=== PATIENT | female | born 2005 | race Caucasian/White ===

== ENCOUNTER 2023-12-15 21:30 | Day surgery (SDC) | payer BC ==
[2023-12-15] MEDS ORDERED: hydrALAZINE 20 MG/ML VIAL SLOW IVP PRN (22:56)
== END 2023-12-16 00:20 | disposition home or self-care (01) ==
LOC: CSHLD/OP 21:30
PROVIDERS: ATTEND Obstetrics & Gynecology
DX: O47.1 False labor at or after 37 completed weeks of gestation (principal); O99.343 Other mental disorders complicating pregnancy, third trimester; F41.9 Anxiety disorder, unspecified; Z79.899 Other long term (current) drug therapy; Z90.49 Acquired absence of other specified parts of digestive tract; Z3A.39 39 weeks gestation of pregnancy
CPT/HCPCS: 99283

== ENCOUNTER 2023-12-20 10:36 | Inpatient (IN) | payer OTHER ==
[~2023-12-20 10:36] MED LIST: Bupivacaine 0.25% HCL 30 ML VIAL ONE; ePHEDrine Sulfate 50 MG/10 ML VIAL ONE
[2023-12-20] MEDS ORDERED: Methylergonovine 0.2 MG/ML VIAL IM PRN ×2 (10:45→21:41)
[2023-12-20] MEDS ORDERED: Diphenoxylate HCl/Atropine Tablet PO PRN ×2 (10:45)
[2023-12-20] MEDS ORDERED: Acetaminophen 500 MG TAB PO PRN (10:45)
[2023-12-20] MEDS ORDERED: Ondansetron PF 4 MG/2 ML Vial IVP PRN ×3 (10:45→19:31)
[2023-12-20] MEDS ORDERED: Promethazine HCl 25 MG/ML VIAL IM PRN ×2 (10:45→19:31)
[2023-12-20] MEDS ORDERED: HYDROcodone/Acetaminophen 5/325 mg Tablet PO PRN ×2 (10:45)
[2023-12-20] MEDS ORDERED: Lidocaine 1% (PF) 30 ML VIAL SC PRN (10:45)
[2023-12-20] MEDS ORDERED: Lactated Ringer's 1,000 ML IV SCH (10:45)
[2023-12-20] MEDS ORDERED: hydrALAZINE 20 MG/ML VIAL SLOW IVP PRN ×2 (10:45→21:41)
[2023-12-20] MEDS ORDERED: Misoprostol 200 MCG TAB PR PRN (10:45)
[2023-12-20] MEDS ORDERED: Oxytocin 30 units/NS 500 ML 500 ML IV SCH ×3 (10:45)
[2023-12-20] MEDS ORDERED: fentaNYL 50 mcg/mL 1 mL Vial SLOW IVP PRN ×2 (10:45→19:31)
[2023-12-20] MEDS ORDERED: Docusate 100 MG CAP PO PRN (10:45)
[2023-12-20] MEDS ORDERED: Ibuprofen 800 MG TAB PO PRN (10:45)
[2023-12-20] MEDS ORDERED: Carboprost 250 MCG/ML AMP IM PRN (10:45)
[2023-12-20 11:37] LABS: Hematocrit 36.4 % (34.9-44.5); Hemoglobin 13.1 g/dL (12.0-15.5); Mean Corpuscular Hemoglobin 31.3 pg (27.0-33.0); Mean Corpuscular Volume 87.1 fl (81.6-98.3); Mean Platelet Volume 11.8 fl (7.4-10.4); Platelet Count 258 10x3/uL (150-450); RBC Distribution Width 12.1 % (11.5-14.5); Red Blood Cell (RBC) Count 4.18 10x6/uL (3.90-5.03); White Blood Cell (WBC) Count 12.5 10x3/uL (3.5-10.5)
[2023-12-20 12:03] LABS: Syphilis Antibody Nonreactive (Nonreactive); Syphilis Antibody Index 0.07 S/CO (<1.00 Non-Reactive)
[2023-12-20 12:06] LABS: HBSAg Index 0.17 S/CO (0-0.99); HIV (1/2) Antibody/Antigen Non-Reactive (NonReactive); HIV 1/2 INDEX 0.22 S/CO (<1.00); Hep B Surf Ag - L&D Non-Reactive S/CO (NonReactive)
[2023-12-20 12:55] VITALS: BMI 32.5
[2023-12-20] MEDS ORDERED: fentaNYL/Ropivacaine Epidural 100 ML ONE (15:45)
[2023-12-20] MEDS ORDERED: CEFAZOLIN 2 GM VIAL ONE (18:23)
[2023-12-20] MEDS ORDERED: Azithromycin 500 MG VIAL ONE (18:23)
[2023-12-20] MEDS ORDERED: Dexamethasone 4 mg/ml Vial ONE (18:51)
[2023-12-20] MEDS ORDERED: Morphine PF 10 MG/10 ML VIAL ONE (18:51)
[2023-12-20] MEDS ORDERED: Ondansetron PF 4 MG/2 ML Vial ONE (18:51)
[2023-12-20] MEDS ORDERED: EPINEPHrine 1 MG/10 ML Abboject SYRINGE ONE (18:52)
[2023-12-20] MEDS ORDERED: Oxytocin 10 UNITS/ML VIAL ONE ×2 (18:52→18:58)
[2023-12-20] MEDS ORDERED: Lidocaine 2% MPF 10 ML AMP (For Epidural Use) ONE (18:52)
[2023-12-20] MEDS ORDERED: Ketorolac Tromethamine 30 MG (1 mL) VIAL ONE (18:52)
[2023-12-20] MEDS ORDERED: PHENYLEPHRINE-NS 100 MCG/ML 10 ML SYRINGE ONE (18:52)
[2023-12-20 18:56] LABS: Analyzer IN Cardio CS NICU; RapidComm Collect By CBN; pH (Cord, venous) 7.293 (7.250-7.350)
[2023-12-20] MEDS ORDERED: Naloxone HCl 0.4 mg/ml Vial IVP PRN ×2 (19:31)
[2023-12-20] MEDS ORDERED: Meperidine HCl/PF 25 MG (1 mL) VIAL SLOW IVP PRN (19:31)
[2023-12-20] MEDS ORDERED: Ketorolac Tromethamine 30 MG (1 mL) VIAL IVP PRN (19:31)
[2023-12-20] MEDS ORDERED: Naloxone HCl 0.4 mg/ml Vial IV PRN (19:31)
[2023-12-20] MEDS ORDERED: Moisturizing Cream (Eucerin) 113 GM JAR TOP PRN (19:31)
[2023-12-20] MEDS ORDERED: Promethazine HCl 25 MG SUPP PR PRN (19:31)
[2023-12-20] MEDS ORDERED: diphenhydrAMINE 50 MG/ML VIAL IVP PRN (19:31)
[2023-12-20] MEDS ORDERED: Communication Order-Pharmacy FS SCH (19:45)
[2023-12-20] MEDS ORDERED: Ketorolac Tromethamine 30 MG (1 mL) VIAL IVP SCH (19:45)
[2023-12-20] MEDS ORDERED: Simethicone Chewable 80 MG TAB PO PRN (21:41)
[2023-12-20] MEDS ORDERED: Lanolin Ointment 7 GM TUBE TOP PRN (21:41)
[2023-12-20] MEDS ORDERED: Acetaminophen 325 MG TAB PO PRN (21:41)
[2023-12-20] MEDS ORDERED: diphenhydrAMINE 25 MG CAP PO PRN (21:41)
[2023-12-20] MEDS ORDERED: Boostrix 0.5 ML (Tdap) VIAL (>/=7 yrs of age) IM ONE (21:41)
[2023-12-20] MEDS ORDERED: Docusate 100 MG CAP PO SCH (22:15)
[2023-12-21 03:33] LABS: Hematocrit 30.6 % (34.9-44.5); Hemoglobin 10.7 g/dL (12.0-15.5); Mean Corpuscular Hemoglobin 30.6 pg (27.0-33.0); Mean Corpuscular Volume 87.4 fl (81.6-98.3); Mean Platelet Volume 11.7 fl (7.4-10.4); Platelet Count 247 10x3/uL (150-450); RBC Distribution Width 12.4 % (11.5-14.5); White Blood Cell (WBC) Count 23.6 10x3/uL (3.5-10.5)
[2023-12-21] MEDS ORDERED: HYDROcodone/Acetaminophen 5/325 mg Tablet PO PRN ×2 (07:45)
[2023-12-21] MEDS ORDERED: fentaNYL 50 mcg/mL 1 mL Vial SLOW IVP PRN (07:45)
[2023-12-21] MEDS: Docusate 100 MG CAP PO SCH ×2 (10:45→20:42)
[2023-12-21] MEDS: Prenatal Vitamin 1 TAB PO SCH (10:45)
[2023-12-21] MEDS: Ibuprofen 800 MG TAB PO SCH ×2 (11:37→18:43)
[2023-12-21] MEDS: HYDROcodone/Acetaminophen 5/325 mg Tablet PO PRN ×2 (15:19→23:24)
[2023-12-21] MEDS ORDERED: Ibuprofen 800 MG TAB PO PRN (22:00)
[2023-12-22] MEDS: Ibuprofen 800 MG TAB PO SCH ×3 (03:22→18:56)
[2023-12-22] MEDS: Prenatal Vitamin 1 TAB PO SCH (08:09)
[2023-12-22] MEDS: Docusate 100 MG CAP PO SCH (08:09)
[2023-12-22] MEDS: HYDROcodone/Acetaminophen 5/325 mg Tablet PO PRN ×3 (08:12→18:56)
[2023-12-22 09:47] LABS: Analyzer IN Cardio CS NICU; RapidComm Collect By CBN
[2023-12-22 16:27] VITALS: BP 131/72; TEMP 98.2
== END 2023-12-22 20:08 | disposition home or self-care (01) | DRG 787 ==
LOC: CSHLD 10:36 → CSHPP 21:56
PROVIDERS: ADMIT Obstetrics & Gynecology; ATTEND Obstetrics & Gynecology
PROC: 10D00Z1 Extraction of Products of Conception, Low, Open Approach (ICD-10-PCS; principal; 2023-12-20)
PROC: 10907ZC Drainage of Amniotic Fluid, Therapeutic from Products of Conception, Via Natural or Artificial Opening (ICD-10-PCS; 2023-12-20)
PROC: 10H07YZ Insertion of Other Device into Products of Conception, Via Natural or Artificial Opening (ICD-10-PCS; 2023-12-20)
DX: O42.02 Full-term premature rupture of membranes, onset of labor within 24 hours of rupture (principal); O98.52 Other viral diseases complicating childbirth; B00.9 Herpesviral infection, unspecified; D64.9 Anemia, unspecified; Z3A.39 39 weeks gestation of pregnancy; Z37.0 Single live birth; F32.A Depression, unspecified; O99.344 Other mental disorders complicating childbirth; O99.02 Anemia complicating childbirth; Z79.899 Other long term (current) drug therapy; O77.0 Labor and delivery complicated by meconium in amniotic fluid; O69.81X0 Labor and delivery complicated by cord around neck, without compression, not applicable or unspecified; O76 Abnormality in fetal heart rate and rhythm complicating labor and delivery; O32.2XX0 Maternal care for transverse and oblique lie, not applicable or unspecified
CPT/HCPCS: 36415; 51702; 82805; 85027; 86780; 86850; 86900; 86901; 87340; 87389; J0171; J0665; J1100; J1885; J2274; J2405; J2590